=== PATIENT | male | born 1995 | race Caucasian/White ===

== ENCOUNTER 2024-08-11 11:12 | Emergency (ER) | payer BC, SELFPAY ==
[2024-08-11 11:29] VITALS: BP 147/85; PULSE 66; RESP 20; TEMP 36.1; O2SAT 100
--- NOTE | 2024-08-11 11:57 | ED_ITS ---
HPI - Back Pain/Injury General Chief Complaint: Back Pain/Injury Stated Complaint: Back Pain Time Seen by Provider: 08/11/24 11:58 Source: patient Mode of arrival: ambulatory Limitations: no limitations History of Present Illness HPI Narrative: 29-year-old male presented for complaint of mid low back pain. Onset yesterday. States it started when he was getting out of the car. She states since then the pain is progressed and radiates into the right mid /lower abdomen and left lower abdomen. Says the pain is worse on the right lower abdomen than left. Pain is worse with walking and sitting. Pain is slightly better when laying down. Rates 8/10. took 4 Aleve and 2 Tylenol last night with no improvement. Also says his urine was dark in color and he urinated less than normal this morning. Denies pain radiating into the hips or legs, numbness, tingling, weakness of the lower extremities, saddle paresthesia or loss of bowel or bladder. Review of Systems Review of Systems: CONSTITUTIONAL: Denies body aches, fever, chills EYES: Denies visual changes CARDIOVASCULAR: Denies chest pain, palpitations, or edema. RESPIRATORY: Denies cough or dyspnea. GASTROINTESTINAL: reports bilateral lower abdominal pain, Denies nausea, vomiting, or diarrhea. SKIN: Denies rash, itching, or wounds. MUSCULOSKELETAL: reports back pain NEUROLOGIC: Denies headache, numbness, tingling, or weakness. All systems reviewed & are unremarkable except as noted in HPI and below PMFSH Comments At time of signature, I have reviewed and agree with nursing past medical, surgical, social and family history unless otherwise noted. Please see nursing chart for further information. There is no relevant family history pertinent to the presenting complaint Exam Narrative: GENERAL: Well-appearing NECK: Supple. full ROM CHEST: Speaks in full sentences. No respiratory distress. HEART: Regular rate and rhythm. Normal and equal peripheral pulses. ABD: soft, round. Tender to Right mid abdomen with palpation. No guarding, rebound tenderness, or rigid. No pulsatile masses. MUSC: Mild right paraspinal tenderness with palpation. No Vertebral point tenderness. BLEs with normal strength and sensation, normal range of motion. No open wounds. alignment normal, pulse palpable and equal bilaterally, skin warm, dry, pink. Capillary refill less than 3 seconds. Gait steady, guarded. SKIN: Warm, dry, no rash. NEURO: Alert and oriented x3. Course Course Emergency Course: Patient is aware of diagnosis, understands and agrees to treatment plan. Anticipatory guidance given. Patient agrees to follow-up as directed and is aware of reasons to seek care at the emergency department. Portions of this record may have been created with voice recognition software Level of Care: Express Care Visit Vital Signs Vital signs: Vital Signs Temperature 97.0 F L 08/11/24 11:29 Pulse Rate 66 08/11/24 11:29 Respiratory Rate 20 08/11/24 11:29 Blood Pressure 147/85 H 08/11/24 11:29 Pulse Oximetry 100 08/11/24 11:29 Temperature 97.0 F L 08/11/24 11:29 Pulse Rate 66 08/11/24 11:29 Respiratory Rate 20 08/11/24 11:29 Blood Pressure 147/85 H 08/11/24 11:29 Pulse Oximetry 100 08/11/24 11:29 Reviewed Transfer Transfered to: [facility] Transportation: Other ( private vehicle) Transfer rationale: Pt is agreeable to transfer. Requests transfer to [facility] via private vehicle. Risks of transportation reviewed with pt including injury, worsening of condition and . v/u. will be driving pt; Report called to hospital, spoke with Cathryn MORENO; Dr Alvarado accepting physician. Pt is in stable condition at time of transfer. Advised to remain NPO and go directly to the hospital. MDM - Back Pain/Injury MDM Narrative Medical decision making narrative: urine unremarkable Patient is advised ER transfer for further evaluation of the right low back and abdominal discomfort. Requests [facility] Differential Diagnosis Differential diagnosis: Likely lumbar radiculopathy, sciatica, strain of lumbar region, renal colic, pyelonephritis and discitis Lab Data Labs: Lab Results 08/11/24 Range/Units 12:25 POC Urine Color Dark POC Urine Clarity Clear POC Urine pH 5.5 POC Ur Specif [place] 1.030 POC Urine Protein Negative (Negative) POC Ur Glucose (UA) Negative (Negative) POC Urine Ketones Negative (Negative) POC Urine Blood Negative (Negative) POC Urine Nitrite Negative (Negative) POC Urine Bilirubin 1+ (Negative) POC Urine Urobilinogen 0.2 POC U Leukocyte Esteras Negative (Negative) Discharge Plan Discharge Clinical Impression: Abdominal pain Qualifiers: Abdominal location: right lower quadrant Qualified Code(s): R10.31 - Right lower quadrant pain Patient Disposition: Acute Care Hospital Condition: Stable Patient Language: Korean Follow-up/Referrals: PHYSICIAN,COOPERER [Primary Care Provider] - Time of Disposition: 12:33
[2024-08-11 12:27] LABS: EDUAAPPEAR Clear; EDUABILI 1+ (Negative); EDUABLOOD Negative (Negative); EDUACOLOR1 Dark; EDUAGLUCOSE Negative (Negative); EDUAKETONE Negative (Negative); EDUALEUKO Negative (Negative); EDUANITRATE Negative (Negative); EDUAPH 5.5; EDUAPROTEIN Negative (Negative); EDUAUROBILI 0.2
--- NOTE | 2024-08-11 12:36 | PC.NURSE ---
NO UC ORDERED PER PROVIDER
== END 2024-08-11 12:39 | disposition short-term general hospital (02) ==
PROVIDERS: Emergency Provider Nurse Practitioner Family
DX: R10.31 Right lower quadrant pain (principal)
CPT/HCPCS: 81003; 99202; G0463